=== PATIENT | male | born 1965 | race Caucasian/White ===

== ENCOUNTER 2018-05-28 21:22 | Emergency (ER) | payer OTHER, MEDICARE ==
[~2018-05-28] VITALS: Ht 162.6 cm; Wt 89.4 kg
--- NOTE | 2018-05-28 22:49 | ED GI/GU/ABDOMINAL COMPLAINT ---
History of Present Illness General Chief Complaint: General Adult Stated Complaint: GROIN PAIN Source: patient, family, old records Exam Limitations: no limitations Vital Signs & Intake/Output Vital Signs & Intake/Output Vital Signs Date Time Temp Pulse Resp B/P B/P Pulse O2 O2 Flow FiO2 Mean Ox Delivery Rate 05/28 2130 97.8 67 18 122/88 99 Room Air ED Intake and Output 05/29 0000 05/28 1200 Intake Total Output Total Balance Patient 197 lb Weight Weight Reported by Patient Measurement Method Allergies Coded Allergies: No Known Allergies (05/28/18) Triage Note: PT FROM HOME C/O GROIN PAIN THAT BEGAN YESTERDAY. PT DENIES S/S UTI. PT STATES LOWER ABD PAIN. PT UNABLE TO ANSWER QUESTIONS IN TRIAGE STATING "I DONT FEEL GOOD THATS ALL" Triage Nurses Notes Reviewed? yes HPI: 52M PMH asthma presenting with acute onset of suprapubic and testicular pain starting about 18 hours ago. Pain was abrupt and severe, currently 10/10. Both testicles hurt equally. He has had no trauma to the area. He has worsening pain in the testicles with urination, and even worse with defecation. Nothing relieves or improves the pain. He denies fever, chills, headache, SOB, chest pain, flank pain, hematuria, bloody stool. (Yaya PORTILLO,Anderson) Reconcile Medications Ciprofloxacin HCl (Cipro) 500 MG TABLET 1 TAB PO BID hydrocoele Ibuprofen 600 MG TABLET 1 TAB PO Q6P PRN pain with food Oxycodone HCl/Acetaminophen (Percocet 5-325 MG Tablet) 5 MG-325 MG TABLET 1 TAB PO Q6H PRN severe pain (Johnathan Flores MD) Past History Travel History Traveled to [place] past 21 day No Medical History Any Pertinent Medical History? see below for history Neurological: NERVE PAIN Psychiatric: depression, insomnia Surgical History Surgical History: non-contributory Psychosocial History What is your primary language Yakut Tobacco Use: Current Daily Use Daily Tobacco Use Amount/Type: => 5 Cigarettes daily Family History Hx Contributory? No (Anderson Javier MD) Review of Systems Review of Systems Constitutional: Reports: no symptoms. EENTM: Reports: no symptoms. Respiratory: Reports: no symptoms. Cardiovascular: Reports: no symptoms. GI: Reports: no symptoms. Genitourinary: Reports: no symptoms. Musculoskeletal: Reports: no symptoms. Skin: Reports: no symptoms. Neurological/Psychological: Reports: no symptoms. Hematologic/Endocrine: Reports: no symptoms. Immunologic/Allergic: Reports: no symptoms. All Other Systems: Reviewed and Negative (Anderson Javier MD) Physical Exam Physical Exam General Appearance: well developed/nourished, moderate distress Head: atraumatic, normal appearance Eyes: Bilateral: normal appearance. Ears, Nose, Throat, Mouth: moist mucous membrane Neck: normal inspection, full range of motion Respiratory: normal breath sounds, chest non-tender, no respiratory distress Cardiovascular: regular rate/rhythm Gastrointestinal: soft, tender suprapubic Male Genitals: erythema, testicular tenderness (R), testicular tenderness (L) Back: normal inspection, normal range of motion Extremities: normal range of motion Neurologic/Psych: awake, alert, oriented x 3, normal mood/affect Core Measures ACS in differential dx? No Sepsis Present: No Sepsis Focused Exam Completed? No (Anderson Javier MD) Progress Differential Diagnosis: AAA, AMI, appendicitis, biliary colic, bowel obstruction , colon cancer, cholecystitis, diverticulitis, epididymitis, esophageal varices, gastritis, hepatitis, hernia, hemorrhoids, ischemic bowel, inflamm bowel dis, Betty-Jessie tear, orchitis, pancreatitis, prostatitis, peptic ulcer, PUD/GERD, perforated viscous, pyelonephritis, SBO, STD, testicular torsion, ureterolithiasis, urinary retention, urethritis, UTI/pyelo Plan of Care: Orders Procedure Date/time Status LACTIC ACID 05/28 2249 Complete URINALYSIS 05/28 2248 Complete COMPREHENSIVE METABOLIC PANEL 05/28 2248 Complete CBC WITHOUT DIFFERENTIAL 05/28 2248 Complete Laboratory Tests 05/28/182257: Lactic Acid 0.6 L 05/28/182257: Anion Gap 12, Estimated GFR > 60, BUN/Creatinine Ratio 15.7, Glucose 85, Calcium 9.7, Total Bilirubin 0.7, AST 36, ALT 29, Alkaline Phosphatase 48, Total Protein 8.4 H, Albumin 4.8, Globulin 3.6, Albumin/Globulin Ratio 1.3, CBC w Diff NO MAN DIFF REQ, RBC 4.97, MCV 91.4, MCH 30.7, MCHC 33.5, RDW 14.4, MPV 9.6, Gran % 58.4, Lymphocytes % 31.3, Monocytes % 8.6, Eosinophils % 1.3, Basophils % 0.4, Absolute Granulocytes 5.2, Absolute Lymphocytes 2.8, Absolute Monocytes 0.8 H, Absolute Eosinophils 0.1, Absolute Basophils 0, Urine Color STRAW, Urine Clarity CLEAR, Urine pH 7.0, Ur Specific [place] <= 1.005, Urine Protein NEG, Urine Ketones NEG, Urine Nitrite NEG, Urine Bilirubin NEG, Urine Urobilinogen 0.2, Ur Leukocyte Esterase NEG, Ur Microscopic EXAM NOT REQUIRED, Urine Hemoglobin NEG, Urine Glucose NEG Initial ED EKG: none (Anderson Javier MD) Diagnostic Imaging: Viewed by Me: Ultrasound. Discussed w/RAD: Ultrasound. Radiology Impression: 1. Normal ultrasound of the right and left testicle. 2. Left-sided hydrocele left-sided varicocele. Edema, hyperemia at the inferior left scrotal sac. 3. Multiple small rounded calcifications in the scrotal sac bilaterally. (Johnathan Flores MD) Departure Departure Condition: Stable Departure Forms: Customer Survey General Discharge Information (Anderson Javier MD) Departure Time of Disposition: 124 Disposition: HOME OR SELF CARE Clinical Impression Primary Impression: Acute hydrocele Secondary Impressions: Left varicocele Referrals: Dayana PORTILLO,Christiano Moran Call for urology follow up Additional Instructions: Use good scrotal support like briefs not boxers. Prescriptions: Current Visit Scripts Ciprofloxacin HCl (Cipro) 1 TAB PO BID #20 TAB Oxycodone HCl/Acetaminophen (Percocet 5-325 MG Tablet) 1 TAB PO Q6H PRN severe pain #15 TAB Ibuprofen 1 TAB PO Q6P PRN pain #50 TAB with food (Johnathan Flores MD) (Johnathan Flores MD)
--- NOTE | 2018-05-28 23:55 | ULTRASOUND REPORT ---
EXAMINATION: US SCROTUM CLINICAL INFORMATION: Abrupt onset bilateral testicular pain COMPARISON: None TECHNIQUE: A sonogram of the scrotum was performed assessing cosme-scale appearance and color Doppler flow. Spectral analysis and Doppler interrogation was performed. FINDINGS: RIGHT: Right testicle measures 4 x 1.8 x 3.1 cm, volume 15.9 mL. Parenchymal echotexture is normal. No focal testicular parenchymal lesions are visualized. Normal symmetric intratesticular flow is visualized. Right epididymal head is normal in size. There are small cysts in the epididymis. No right hydrocele or varicocele is seen. LEFT: Left testicle measures 3.6 x 2 x 2.7 cm, volume 13.8 mL. Parenchymal echotexture is normal. No focal testicular parenchymal lesions are visualized. Normal symmetric intratesticular flow is visualized. Left epididymal head is normal in size. There are small cysts in the epididymis. There is a left-sided hydrocele with debris. There is a left-sided varicocele. There is edema in hyperemia to the scrotal sac inferior to left testicle. There are multiple small rounded calcifications in the scrotal sac bilaterally IMPRESSION: 1. Normal ultrasound of the right and left testicle. 2. Left-sided hydrocele left-sided varicocele. Edema, hyperemia at the inferior left scrotal sac. 3. Multiple small rounded calcifications in the scrotal sac bilaterally.
[2018-05-29 00:21] LABS: ABSOLUTE BASOPHIL COUNT 0 /CUMM (0.0-0.2); ABSOLUTE EOSINOPHIL COUNT 0.1 /CUMM (0.0-0.7); ABSOLUTE GRANULOCYTE CT 5.2 /CUMM (1.4-6.5); ABSOLUTE LYMPH COUNT 2.8 /CUMM (1.2-3.4); ABSOLUTE MONOCYTE COUNT 0.8 /CUMM (0.10-0.60); BASOPHIL % 0.4 % (0.0-2.0); EOSINOPHIL % 1.3 % (0-5); GRANULOCYTE % 58.4 % (42.2-75.2); HEMATOCRIT 45.4 % (42-52); MEAN CORPUSCULAR HGB 30.7 PG (27.0-31.0); MEAN CORPUSCULAR HGB CONC 33.5 G/DL (33.0-37.0); MEAN CORPUSCULAR VOLUME 91.4 FL (80.0-94.0); MEAN PLATELET VOLUME 9.6 FL (7.4-10.4); PLATELET COUNT 169 /CUMM (130-400); RBC DISTRIBUTION WIDTH 14.4 % (11.5-14.5); RED BLOOD CELL CT 4.97 /CUMM (4.70-6.10); WHITE BLOOD CELL COUNT 8.9 /CUMM (4.8-10.8)
[2018-05-29] MEDS ORDERED: PERCOCET 5-3251 EACH PO (01:28)
[2018-05-29] MEDS ORDERED: CIPRO500 M1 PO (01:28)
[2018-05-29] MEDS ORDERED: IBUPROFEN600 M1 PO (01:28)
[2018-05-29 02:00] VITALS: BP 128/74
== END 2018-05-29 02:26 ==
LOC: ERH 21:22
PROVIDERS: Internal Medicine
DX: N43.3 Hydrocele, unspecified (principal); I86.1 Scrotal varices
CPT/HCPCS: 81003; 96374